=== PATIENT | male | born 2000 | race Caucasian/White ===

== ENCOUNTER 2022-12-01 12:05 | Emergency (ER) | payer SELFPAY ==
[~2022-12-01] VITALS: Ht 182.9 cm; Wt 65.8 kg
--- NOTE | 2022-12-01 12:10 | NUR ---
Patient to ER bed HALLWAY 1 to gown for evaluation. Side rails up. Report given to SELF.
--- NOTE | 2022-12-01 12:12 | NUR ---
DR. HECTOR AT BEDSIDE TO ASSESS PT.
[2022-12-01 12:15] VITALS: BP_SYST 109
[2022-12-01 12:21] VITALS: BP_SYST 109
--- NOTE | 2022-12-01 12:24 | NUR ---
WOUND CARE PREFORMED. PT LEFT HAND CLEANSED WITH NS. BACITRACIN APPLIED COVERED WITH BANDAID. PT TOLERATED PROCEDURE WELL.
--- NOTE | 2022-12-01 12:25 | NUR ---
Patient given written and verbal discharge instructions and verbalizes understanding. ER MD discussed with patient the results and treatment provided. Patient in stable condition. ID arm band removed. IV catheter removed intact and dressing applied, no active bleeding. Patient educated on pain management and to follow up with PMD. Opportunity for questions provided and answered. Medication side effect fact sheet provided.
== END 2022-12-01 12:21 | disposition home or self-care (01) ==
LOC: SED 12:05
DX: S60.512A Abrasion of left hand, initial encounter (principal); Z79.899 Other long term (current) drug therapy; V89.2XXA Person injured in unspecified motor-vehicle accident, traffic, initial encounter; Y93.89 Activity, other specified; Y92.89 Other specified places as the place of occurrence of the external cause; Y99.8 Other external cause status
CPT/HCPCS: 99283